=== PATIENT | female | born 1960 | race Caucasian/White ===

== ENCOUNTER 2017-04-18 09:59 | Inpatient (IN) | payer BC, OTHER ==
[2017-04-08 10:04] VITALS: BMI 36.0
--- NOTE | 2017-04-08 10:42 | PAT Medication Instructions ---
Service Date Apr 08, 2017. Current Home Medication List Fenofibrate (Fenofibrate), 1 TAB PO QAM Fish Oil ([place]-3), 1 CAP PO QAM Fluticasone Prop/Salmeterol (Advair Diskus 250/50 60 Dose), 1 PUFF INH QAM Montelukast Sodium (Singulair), 10 MG PO QAM Olmesartan Medoxomil (Benicar), 40 MG PO QAM Oxygen (Oxygen), 2 LITERS NA PRN PRN for Shortness of Breath Pantoprazole (Protonix), 40 MG PO QAM Tiotropium Spencer (Spiriva Handihaler), 1 CAP INH QAM Medication Instructions For Your Scheduled Surgery - Hold the following medications as of 04/09/17: Fish Oil ([place]-3), 1 CAP PO QAM - Hold the following medications the morning of surgery: Olmesartan Medoxomil (Benicar), 40 MG PO QAM Fenofibrate (Fenofibrate), 1 TAB PO QAM - Take the following medications the morning of surgery with a sip of water OTHERWISE NOTHING TO EAT OR DRINK AFTER MIDNIGHT: Pantoprazole (Protonix), 40 MG PO QAM Tiotropium Spencer (Spiriva Handihaler), 1 CAP INH QAM Fluticasone Prop/Salmeterol (Advair Diskus 250/50 60 Dose), 1 PUFF INH QAM Montelukast Sodium (Singulair), 10 MG PO QAM If you have any questions please call us at [phone] or [phone] or [phone]
[2017-04-08 11:41] LABS: BASO % 0.1 %; BASO ABS # 0.01 K/uL (0-0.2); COMPLETE YES; EOS % 2.3 %; HEMATOCRIT 46.4 % (37-47); IG% 0.4 %; LYMPH % 19.6 %; LYMPH ABS # 1.45 K/uL (1.2-3.4); MEAN CELL VOLUME 92.2 fL (80-100); MEAN CORPUSCULAR HEMOGLOBIN 30.6 pg (25-34); MEAN CORPUSCULAR HGB CONC 33.2 g/dl (32-36); MEAN PLATELET VOLUME 10.9 fL (7.4-10.4); MONO % 8.1 %; NEUT % 69.5 %; PLATELET COUNT 270 K/uL (130-400); RED BLOOD COUNT 5.03 M/uL (4.2-5.4); WHITE BLOOD COUNT 7.41 K/uL (4.8-10.8)
[2017-04-08 11:50] LABS: BUN/CREATININE RATIO 11.1 (10-20); CALCIUM 9.5 mg/dl (8.5-10.1); CREATININE 0.87 mg/dl (0.60-1.20); POTASSIUM 4.1 mmol/L (3.5-5.1)
[~2017-04-18] VITALS: Ht 157.5 cm; Wt 89.1 kg
[2017-04-18] VITALS (7 sets, daily range): BP systolic 130–160; BP diastolic 74–91; PULSE 78–92; TEMP 36.5–37; O2SAT 90–98; Ht 157.5 cm; Wt 89.1 kg
[~2017-04-18 09:59] MED LIST: ADVIN25/60 INH; BNC/40 PO; LACTATED RINGER'S 1000ML IV SCH; MONT1TAB3 PO; OMEG10007 PO; OXGN; PANT40TA PO; SCOPOLAMINE 1.5 MG TDSY TD SCH; SPRIN/30 INH; TRC145 PO
[2017-04-18] MEDS ORDERED: ASPI-232 PO (10:39)
[2017-04-18] MEDS ORDERED: DEXAMETHASONE SOD INJ 4 MG/ML VIAL ONE (10:54)
[2017-04-18] MEDS ORDERED: SUCCINYLCHOLINE CHLORIDE 20 MG/ML 10 ML VIAL IV ONE (10:54)
[2017-04-18] MEDS ORDERED: ROCURONIUM BROMIDE 10 MG/ML 5 ML VIAL ONE (10:54)
[2017-04-18] MEDS ORDERED: NEOSTIGMINE METHYLSULFATE 5 MG/5 ML SYR ONE (10:54)
[2017-04-18] MEDS ORDERED: ONDANSETRON INJ 2 MG/ML 2 ML VIAL ONE ×3 (10:54→12:54)
[2017-04-18] MEDS ORDERED: PROPOFOL IV EMULSION 10 MG/ML 20 ML VIAL IV ONE (10:54)
[2017-04-18] MEDS ORDERED: GLYCOPYRROLATE INJ 0.2 MG/ML VIAL ONE ×2 (10:54→13:59)
[2017-04-18] MEDS ORDERED: PHENYLEPHRINE HCL INJ 10 MG/ML VIAL ONE (10:54)
[2017-04-18] MEDS ORDERED: EpHEDrine SULFATE INJ 50 MG/ML AMP ONE (10:54)
[2017-04-18] MEDS ORDERED: LIDOCAINE HCL 2% 2 ML VIAL (20MG/ML) ONE (10:54)
[2017-04-18] MEDS ORDERED: MIDAZOLAM HCL 1 MG/ML 2ML VIAL ONE (10:55)
[2017-04-18] MEDS ORDERED: FENTANYL CITRATE INJ 50 MCG/1 ML 2 ML VIAL ONE ×3 (10:55→14:24)
[2017-04-18] MEDS ORDERED: LACTATED RINGER'S 1000ML 1,000 ML IV PRN (11:34)
[2017-04-18] MEDS ORDERED: SCOPOLAMINE 1.5 MG TDSY TD ONE (11:36)
[2017-04-18] MEDS ORDERED: ONDANSETRON INJ 2 MG/ML 2 ML VIAL IV PRN ×2 (11:45→14:30)
[2017-04-18] MEDS ORDERED: FENTANYL CITRATE INJ 50 MCG/1 ML 2 ML VIAL IV PRN (11:45)
[2017-04-18] MEDS ORDERED: HYDROmorphone INJ 1 MG/ML SYR IV PRN (11:45)
[2017-04-18] MEDS ORDERED: DiphenhydrAMINE HCL 50 MG/ML VIAL IV PRN (11:45)
[2017-04-18] MEDS ORDERED: METOCLOPRAMIDE HCL INJ 5 MG/ML 2 ML VIAL ONE (12:14)
[2017-04-18] MEDS ORDERED: DiphenhydrAMINE HCL 50 MG/ML VIAL ONE (12:15)
[2017-04-18] MEDS ORDERED: BUPIVACAINE LIPOSOME 1/3% 266 MG/20 ML VIAL INFIL ONE (12:17)
[2017-04-18] MEDS ORDERED: SODIUM CHLORIDE 0.9% PF 50 ML VIAL ONE (12:17)
--- NOTE | 2017-04-18 12:27 | History & Physical Bridge Note ---
H&P Re-Evaluation Bridge Note: I have examined the patient, reviewed the History & Physical and in the interval since the performance of the History & Physical I have noted the following changes of clinical significance: No changes noted
[2017-04-18] MEDS ORDERED: ARTIFICIAL TEARS OP OINT 3.5 GM TUBE ONE (12:50)
[2017-04-18] MEDS ORDERED: ESMOLOL HCL 10 MG/ML 10 ML VIAL ONE (12:54)
[2017-04-18] MEDS ORDERED: KETAMINE HCL INJ 50 MG/ML 10 ML VIAL ONE (12:59)
[2017-04-18] MEDS ORDERED: CEFAZOLIN SOD 1 GM VIAL ONE (13:22)
[2017-04-18] MEDS ORDERED: MoRPHine SULFATE 2 MG/ML CARP IV PRN (14:30)
[2017-04-18] MEDS ORDERED: OXYCODONE HCL IR 5 MG TAB (IMMEDIATE RELEASE) PO PRN (14:30)
--- NOTE | 2017-04-18 15:09 | DIAGNOSTIC IMAGING REPORT ---
SINGLE VIEW CHEST CLINICAL HISTORY: Status post lung biopsies. FINDINGS: An AP, portable, upright chest radiograph is compared to study dated 03/09/2016 and correlated with chest CT dated 08/30/2016. The cardiomediastinal silhouette is unremarkable. A hiatal hernia is noted. Chronic interstitial thickening is similar to previous. A right-sided chest tube has been placed. Airspace opacities in the right midlung are new from previous and may represent postbiopsy hemorrhage. No large pleural effusion is identified. No pneumothorax is seen. The skeletal structures are osteopenic. The bony thorax is grossly intact. IMPRESSION: 1. A right-sided chest tube has been placed. No pneumothorax is seen post procedure. 2. Airspace opacities in the right midlung are new from previous and likely represent postprocedural hemorrhage. Follow-up to resolution is recommended. 3. Chronic interstitial thickening is unchanged. Parenchymal findings were better assessed on the 08/30/2016 CT scan. Electronically signed by: Lane Nguyen M.D. 04/18/2017 3:08 PM Dictated Date/Time: 04/18/2017 3:05 PM
[2017-04-18] MEDS ORDERED: KETOROLAC TROMETHAMINE 30 MG/ML VIAL ONE (15:13)
[2017-04-18] MEDS ORDERED: KETOROLAC TROMETHAMINE 30 MG/ML VIAL IV STA (15:14)
--- NOTE | 2017-04-18 15:19 | Anesthesiology Progress Note ---
Anesthesia Post Op Note Date & Time Apr 18, 2017 at 15:15 Vital Signs Pain Intensity: 5 Vital Signs Past 12 Hours Date Time Temp Pulse Resp B/P (MAP) Pulse Ox O2 Delivery O2 Flow Rate FiO2 04/18/17 15:01 158/79 04/18/17 14:59 93 20 95 04/18/17 14:59 92 20 04/18/17 14:56 151/82 04/18/17 14:54 88 18 97 04/18/17 14:54 87 18 04/18/17 14:51 132/70 04/18/17 14:49 97 20 04/18/17 14:49 95 20 99 04/18/17 14:46 149/82 04/18/17 14:44 100 24 04/18/17 14:44 101 24 97 04/18/17 14:43 165/75 04/18/17 14:41 154/97 04/18/17 14:39 106 79 04/18/17 14:39 106 04/18/17 14:39 36.4 99 18 154/97 92 Mask 15 04/18/17 10:27 36.5 92 20 160/91 91 Room Air Notes Mental Status: alert / awake / arousable, participated in evaluation Pt Amnestic to Procedure: Yes Nausea / Vomiting: adequately controlled Pain: adequately controlled Airway Patency, RR, SpO2: stable & adequate BP & HR: stable & adequate Hydration State: stable & adequate Anesthetic Complications: no major complications apparent Pain continues to improve. Giving a dose of ketorolac for pain around chest tube. O2 coming down, currently at 5L, satting mid 90s. Of note, pt's sat was just 91% on room air to start.
[2017-04-18] MEDS: KETOROLAC TROMETHAMINE 15 MG/ML VIAL IV. SCH ×2 (16:00→23:49)
[2017-04-18] MEDS: CHECK SCOPOLAMINE PATCH PLACEMENT SCH ×2 (16:00→23:50)
--- NOTE | 2017-04-18 17:30 | OPERATIVE REPORT ---
DATE OF OPERATION: 04/18/2017 PREOPERATIVE DIAGNOSIS: Cystic fibrotic changes bilateral lungs. POSTOPERATIVE DIAGNOSIS: Same. PROCEDURE: Robotic-assisted thoracoscopic lung biopsy right lung. SURGEON: Dr. Escobar. GOLF RANGE ATTENDANT: MELISSA Carpenter ANESTHESIA: General anesthesia endotracheal intubation with a single lumen tube. SPECIFICS OF PROCEDURE: Mrs. Wong is a 57-year-old who was followed by the condenser cleaner and they have been concerned about her lungs for quite some time. She has marked dyspnea. She had cystic changes on her CT scan. Tissue diagnosis was required. Discussed this in detail. 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 On 04/18/2017, the patient underwent an uncomplicated robotic-assisted thoracoscopic biopsy. We biopsied the right upper lobe, right middle lobe and right lower lobe. We did an Exparel block. We had negligible blood loss. She tolerated it well. DESCRIPTION OF PROCEDURE: The patient brought to the operating room and laid in supine position. General anesthesia induced and endotracheal intubation was performed with a single lumen tube. The patient was then prepped and draped in the usual sterile fashion in the left lateral decubitus position. After appropriate timeout had been given and prophylactic antibiotics administered, an incision was made in the midaxillary line in about the ninth interspace. A 12 mm port was placed and upon placing the 0 degrees camera, could be seen there were no adhesions. There were obvious gross changes of the lungs. It appeared to have a predilection for the upper lobe and the middle lobe. Another port was placed posteriorly about a handsbreadth away in ninth interspace and another port placed in the eighth interspace anteriorly. I then placed an chemist assistant's port between the midaxillary line and the anterior port 2 interspaces below. These were all done under thoracoscopic guidance. Robot was then docked. Upon entering a portion of the right upper lobe was grasped and an EndoGIA stapler was fired 3 times to remove a portion of the right upper lobe. This was removed through the chemist assistant port and a portion cut and sent for cultures. I then removed a small portion of the middle lobe and then a portion of the lower lobe which did not appear to have the same changes. We irrigated this out and there really was very little in the way of any bleeding and there was no air leak. 266 mg of Exparel mixed with 60 mL of normal saline and used to block the 2nd to the 11th rib intrathoracically. This was done through the chemist assistant's port. We then undocked the robot after placing a chest tube to the anterior thoracoscopy port. A 24-[place] chest tube was directed towards the apex, sutured in place with heavy silk suture. We had no air leak at the conclusion of the case. 0 Vicryl was used to close the muscle layers of each of the remaining 3 ports and then 4-0 Monocryl was used in running fashion to reapproximate the wound edges. She tolerated it quite well. I attest to the content of the Intraoperative Record and any orders documented therein. Any exception s are noted below.
[2017-04-18] MEDS: D5W AND 1/2NSS 1,000 ML IV SCH (17:33)
[2017-04-18] MEDS: ACETAMINOPHEN IV 1,000 MG in EMPTY BAG 0 ML IV SCH ×2 (17:33→23:49)
[2017-04-18] MEDS: CEFAZOLIN IV 2,000 MG in DEXTROSE 5% 50ML 100 ML IV SCH (20:27)
[2017-04-18] MEDS: DOCUSATE SODIUM 100 MG CAP PO SCH (20:37)
[2017-04-18] MEDS: METOCLOPRAMIDE HCL INJ 5 MG/ML 2 ML VIAL IV. SCH (23:09)
[2017-04-19] MEDS: D5W AND 1/2NSS 1,000 ML IV SCH (02:37)
[2017-04-19] MEDS: CEFAZOLIN IV 2,000 MG in DEXTROSE 5% 50ML 100 ML IV SCH (03:51)
[2017-04-19 04:00] VITALS: BP 110/65; PULSE 61; TEMP 36.7; O2SAT 95
[2017-04-19] MEDS: METOCLOPRAMIDE HCL INJ 5 MG/ML 2 ML VIAL IV. SCH (05:54)
[2017-04-19 05:58] VITALS: O2SAT 93
[2017-04-19 06:11] LABS: INR 1.1 (0.9-1.1)
[2017-04-19] MEDS: KETOROLAC TROMETHAMINE 15 MG/ML VIAL IV. SCH (07:26)
[2017-04-19] MEDS: CHECK SCOPOLAMINE PATCH PLACEMENT SCH (07:27)
[2017-04-19] MEDS: ACETAMINOPHEN IV 1,000 MG in EMPTY BAG 0 ML IV SCH (07:27)
--- NOTE | 2017-04-19 08:17 | DIAGNOSTIC IMAGING REPORT ---
CHEST ONE VIEW PORTABLE CLINICAL HISTORY: s/p lung biopsies post biopsy COMPARISON STUDY: 04/18/2017 FINDINGS: No evidence for postprocedural pneumothorax. Chronic interstitial change throughout both hemithoraces is seen. Right-sided chest tube is unchanged in location. IMPRESSION: Stable post procedural chest series. No evidence pneumothorax. Electronically signed by: Jose Graham M.D. 04/19/2017 8:15 AM Dictated Date/Time: 04/19/2017 8:15 AM
[2017-04-19 08:18] VITALS: BP 128/76; PULSE 70; TEMP 36.7; O2SAT 92
[2017-04-19] MEDS ORDERED: ENOXAPARIN 40 MG/0.4 ML SYR SQ SCH (09:00)
[2017-04-19] MEDS ORDERED: PANTOprazole SOD 40 MG TAB PO SCH (09:00)
[2017-04-19] MEDS ORDERED: OLMESARTAN MEDOXOMIL 40 MG TAB PO SCH (09:00)
[2017-04-19] MEDS ORDERED: TIOTROPIUM BROMIDE 5 PUFF/90 MCG INH INH SCH (09:00)
[2017-04-19] MEDS ORDERED: ASPIRIN 81 MG ECTAB PO SCH (09:00)
[2017-04-19] MEDS ORDERED: FENOFIBRATE 145 MG TAB PO SCH (09:00)
[2017-04-19] MEDS ORDERED: FLUTICASONE/SALMETEROL 250/50 (ADVAIR) 14 PUFF/1 INHALER INH SCH (09:00)
[2017-04-19] MEDS ORDERED: MONTELUKAST SOD 10 MG TAB PO SCH (09:00)
[2017-04-19] MEDS ORDERED: RXC5 PO (09:06)
--- NOTE | 2017-04-19 09:12 | Discharge Instructions ---
Discharge Instructions Date of Service Apr 19, 2017. Admission Reason for Admission: Interstitial Lung Disease Discharge Discharge Diagnosis / Problem: Interstitial lung disease Discharge Goals Goal(s): Decrease discomfort (Use pain meds as needed.) Activity Recommendations Activity Limitations: as noted below Exercise/Sports Limitations: gradually increase as tolerated May Resume Sexual Activity: when tolerated Shower/Bathe: may shower/bathe in 3 days . Instructions / Follow-Up Instructions / Follow-Up My office will call you about appointment next week. You will need to get a Chest X-ray before I see you next week. My office will instruct you about this. Remove all dressings and shower on 04-22-17. Use you incentive spirometer. Walk!!! Current Hospital Diet Patient's current hospital diet: Regular Diet Discharge Diet Recommended Diet: Regular Diet Fluid Restriction: None Procedures Procedures Performed: Right Video Assisted Thoracoscopy with Lung Biopsies Robot Assist Pending Studies Studies pending at discharge: yes List of pending studies: Pathology Medical Emergencies . Who to Call and When: Medical Emergencies: If at any time you feel your situation is an emergency, please call 911 immediately. . Non-Emergent Contact Non-Emergency issues call your: Surgeon (Call hospital at [phone] Escobar.) . "Provider Documentation" section prepared by Cole Escobar. . VTE Core Measure Inpt VTE Proph given/why not?: Enoxaparin (Lovenox)SQ, SCD's
--- NOTE | 2017-04-19 09:22 | DIAGNOSTIC IMAGING REPORT ---
CHEST ONE VIEW PORTABLE CLINICAL HISTORY: s/p chest tube removal COMPARISON STUDY: 04/19/2017 8:05 AM FINDINGS: No evidence pneumothorax status post right-sided chest tube removal. All remaining components of the study are unchanged. IMPRESSION: No pneumothorax status post chest tube removal. Electronically signed by: Jose Graham M.D. 04/19/2017 9:21 AM Dictated Date/Time: 04/19/2017 9:20 AM
[2017-04-19] MEDS: DOCUSATE SODIUM 100 MG CAP PO SCH (09:28)
[2017-04-19 10:24] VITALS: BP 128/76; PULSE 70; TEMP 36.7; O2SAT 92
--- NOTE | 2017-04-21 09:03 | DISCHARGE SUMMARY ---
DISCHARGE DIAGNOSES: 1. Cystic/fibrotic disease of lungs. HOSPITAL COURSE: This very nice 57-year-old has known history of problems with cystic changes in her lungs. She was sent to me by Dr. Magdi Amor as a tissue diagnosis is required. She suffers from significant dyspnea. On 04/18/2017, the patient underwent an uncomplicated robot-assisted thoracoscopic biopsy of her right lower, middle and upper lobes. It appeared there was predilection to the upper lobes grossly. The patient tolerated this very well with no significant blood loss. She had no air leak. I discharged her the following morning on 04/19/2017. She was ambulating in the hallway after I pulled her chest tube and was on room air. She had no pneumothorax on her chest x-ray or effusion or infiltrate. Her pain was very well-controlled. She was discharged home with wound care instructions. I will see her back in the office next week to go over her path results.
== END 2017-04-19 10:55 | disposition home or self-care (01) | DRG 168 ==
LOC: C.ACU 09:59 → C.MSN 14:32 → ENRESERV 15:21
PROVIDERS: ADMIT Surgery; ATTEND Surgery
PROC: 0BBF4ZX Excision of Right Lower Lung Lobe, Percutaneous Endoscopic Approach, Diagnostic (ICD-10-PCS; principal; 2017-04-18 12:00)
PROC: 8E0W4CZ Robotic Assisted Procedure of Trunk Region, Percutaneous Endoscopic Approach (ICD-10-PCS; principal; 2017-04-18 12:00)
PROC: 0BBD4ZX Excision of Right Middle Lung Lobe, Percutaneous Endoscopic Approach, Diagnostic (ICD-10-PCS; principal; 2017-04-18 12:00)
PROC: 0BBC4ZX Excision of Right Upper Lung Lobe, Percutaneous Endoscopic Approach, Diagnostic (ICD-10-PCS; principal; 2017-04-18 12:00)
DX: J84.10 Pulmonary fibrosis, unspecified (principal); J43.9 Emphysema, unspecified; J45.909 Unspecified asthma, uncomplicated; I10 Essential (primary) hypertension; K21.9 Gastro-esophageal reflux disease without esophagitis; G47.30 Sleep apnea, unspecified; E66.9 Obesity, unspecified; Z68.36 Body mass index [BMI] 36.0-36.9, adult; Z99.81 Dependence on supplemental oxygen; Z96.652 Presence of left artificial knee joint; Z87.891 Personal history of nicotine dependence; Z79.82 Long term (current) use of aspirin; Z79.899 Other long term (current) drug therapy

== ENCOUNTER → 2017-04-26 | Outpatient (CLI) | payer BC ==
[~2017-04-26] MED LIST changes: +ASPI-232 PO; -LACTATED RINGER'S 1000ML IV SCH; +RXC5 PO; -SCOPOLAMINE 1.5 MG TDSY TD SCH
--- NOTE | 2017-04-26 09:22 | DIAGNOSTIC IMAGING REPORT ---
CHEST 2 VIEWS ROUTINE HISTORY: J43.9 Pulmonary [id number] Lung disease, [id number] COMPARISON: Chest 04/19/2017. FINDINGS: The heart is borderline enlarged. This remains unchanged. Mild diffuse interstitial thickening persists. No pleural effusions. No pneumothorax. Right midlung zone peripheral focal airspace opacity has slightly improved. IMPRESSION: 1. Right midlung zone peripheral focal airspace opacity is slightly improved. 2. Diffuse interstitial thickening, unchanged. Electronically signed by: Nathan Elaine M.D. 04/26/2017 9:21 AM Dictated Date/Time: 04/26/2017 9:19 AM
== END | disposition home or self-care (01) ==
LOC: C.RAD 08:57
PROVIDERS: ATTEND Surgery
DX: J43.9 Emphysema, unspecified (principal); J84.9 Interstitial pulmonary disease, unspecified; R91.8 Other nonspecific abnormal finding of lung field

== ENCOUNTER → 2017-07-07 | Outpatient (CLI) | payer BC ==
[~2017-07-07] MED LIST changes: +OPTIRAY 320 IV PRN
--- NOTE | 2017-07-07 15:53 | DIAGNOSTIC IMAGING REPORT ---
CT SCAN OF THE ABDOMEN AND PELVIS COMBO CLINICAL HISTORY: Lymphangioleiomyomatosis. Assess for angiomyolipoma of the kidneys. COMPARISON STUDY: Chest CT dated 08/30/2016. TECHNIQUE: Before and following the IV administration of 93 cc of Optiray 320, CT scan of the abdomen and pelvis is performed from the lung bases to the proximal femora. Images are reviewed in the axial, sagittal, and coronal planes. IV contrast was administered without complication. A dose lowering technique was utilized adhering to the principles of ALARA. CT DOSE: 1927.54 mGycm FINDINGS: Lung bases: The heart is normal in size and without pericardial effusion. Numerous cysts are present at both lung bases. No airspace consolidation or pleural effusion is identified. There is a moderate to large hiatal hernia. Liver: The contrast-enhanced liver is enlarged, measuring 21 cm in length. The liver demonstrates diffusely diminished attenuation consistent with hepatic steatosis. Fatty sparing is seen adjacent to the gallbladder fossa. There is no intrahepatic biliary ductal dilatation. The hepatic veins and portal veins are patent. Gallbladder: Unremarkable. Spleen: The spleen is mildly enlarged measuring 14 cm in length. Pancreas: Unremarkable. Adrenal glands: Unremarkable. Kidneys: No renal calculi are identified on the unenhanced series. The contrast enhanced kidneys demonstrate mild cortical atrophy and are without hydronephrosis. The kidneys enhance symmetrically. No renal mass lesion is seen. A 12 mm cyst is present in the left lower pole. Abdominal vasculature: The abdominal aorta is normal in course and caliber noting mild atherosclerotic calcification. Bowel: The small bowel and colon are normal in course and caliber. There is mild to moderate colonic fecal retention. The appendix is well-visualized and normal. Peritoneum: There is no intraperitoneal free air or abdominal ascites. Lymphadenopathy: None. Pelvic viscera: The bladder, uterus, and adnexa are normal as visualized. Skeletal structures: The skeletal structures are osteopenic. Mild degenerative change is present at L5-S1. No lytic or blastic lesions are seen. IMPRESSION: 1. There is no renal mass lesion identified. Specifically, there is no evidence of angiomyolipoma as clinically queried. 2. 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 3. Hepatomegaly and hepatic steatosis. 4. Mild splenomegaly. 5. Hiatal hernia. 6. Additional findings as above. Electronically signed by: Lane Nguyen M.D. 07/07/2017 3:51 PM Dictated Date/Time: 07/07/2017 3:42 PM
--- NOTE | 2017-07-13 09:01 | ECHOCARDIOGRAM REPORT ---
*NOTICE TO RECEIVING [employer] This information is strictly Confidential and protected under [place] law. [place] law prohibits you from making any further disclosure of this information unless further disclosure is expressly permitted by the written consent of the person to whom it pertains or is authorized by law. A general authorization for the release of medical or other information is not sufficient for this purpose. Hospital accepts no responsibility if the information is made available to any other person, INCLUDING THE PATIENT. Interpretation Summary * Echocardiogram Report * Name: VALDEZ MCCURDY Study Date: 07/07/2017 01:14 PM * HR: 79 * : 1960 (M/d/yyyy) Gender: Female Height: 62 in * Age: 57 yrs Ethnicity: [place] Weight: 196 lb * Ordering Physician: Refugio Carter M.D. * Referring Physician: Refugio Carter M.D. * Performed By: Radha Berg RCS * Reason For Study: Lymphagioleimyomatosis; Eval Heart to Start Medication * BSA: 1.9 m2 * -- Conclusions -- * 1. Normal left ventricular size and systolic function. EF 60-65%. No regional wall motion abnormalities. No left ventricular hypertrophy. Type 1 diastolic dysfunction. * 2. Aortic valve sclerosis mild, without significant aortic valvular stenosis. Trace aortic regurgitation. * 3. Normal estimated right ventricular systolic pressure. * 4. No prior study available for comparison. Procedure Details * Left Ventricle Normal left ventricular size and systolic function. EF 60-65%. No regional wall motion abnormalities. No left ventricular hypertrophy. Type 1 diastolic dysfunction. * Right Ventricle The right ventricle is normal in size and function. The right ventricular systolic function is normal as assessed by tricuspid annular plane systolic excursion (TAPSE) (normal >1.5 cm). * Atria The left atrial size is normal. Right atrial size is normal. There is no evidence of atrial septal defect, but resolution does not allow assessment for a patent foramen ovale. * Mitral Valve There is mild mitral annular calcification. There is no mitral valve stenosis. There is trace mitral regurgitation. * Tricuspid Valve The tricuspid valve is not well visualized, but is grossly normal. There is no tricuspid stenosis. There is trace tricuspid regurgitation. * Aortic Valve The aortic valve is trileaflet. Aortic valve sclerosis mild, without significant aortic valvular stenosis. Trace aortic regurgitation. * Pulmonic Valve The pulmonary valve is inadequately visualized, but the Doppler data is adequate for interpretation. There is no pulmonic valvular stenosis. There is no significant pulmonary regurgitation. * Great Vessels The aortic root is normal size. * Pericardium/Pleural There is no pericardial effusion. * Great Vessels Normal inferior vena cava size and collapsability with sniff indicates a normal right atrial pressure of 3 mmHg * * MMode 2D Measurements and Calculations * IVSd 0.86 cm * * LVIDd 4.9 cm * LVIDs 2.6 cm * LVPWd 0.88 cm * * IVS/LVPW 0.97 * FS 46.9 % * EDV(Teich) 115.4 ml * ESV(Teich) 25.3 ml * EF(Teich) 78.1 % * * EDV(cubed) 121.1 ml * ESV(cubed) 18.2 ml * EF(cubed) 85.0 % * * LV mass(C)d 148.8 grams * LV mass(C)dI 78.5 grams/m\S\2 * * SV(Teich) 90.1 ml * SI(Teich) 47.6 ml/m\S\2 * SV(cubed) 103.0 ml * SI(cubed) 54.3 ml/m\S\2 * * Ao root diam 2.7 cm * Ao root area 5.9 cm\S\2 * * LVOT diam 2.0 cm * LVOT area 3.2 cm\S\2 * * LVAd ap4 27.0 cm\S\2 * LVLd ap4 8.2 cm * EDV(MOD-sp4) 73.8 ml * EDV(sp4-el) 75.2 ml * LVAs ap4 14.9 cm\S\2 * LVLs ap4 6.5 cm * ESV(MOD-sp4) 30.3 ml * ESV(sp4-el) 28.7 ml * EF(MOD-sp4) 58.9 % * EF(sp4-el) 61.8 % * * LVAd ap2 26.6 cm\S\2 * LVLd ap2 8.1 cm * EDV(MOD-sp2) 77.3 ml * EDV(sp2-el) 74.2 ml * LVAs ap2 14.0 cm\S\2 * LVLs ap2 6.4 cm * ESV(MOD-sp2) 26.9 ml * ESV(sp2-el) 25.9 ml * EF(MOD-sp2) 65.2 % * EF(sp2-el) 65.0 % * * LVLd %diff -1.20 % * EDV(MOD-bp) 76.6 ml * LVLs %diff -1.76 % * ESV(MOD-bp) 28.6 ml * EF(MOD-bp) 62.7 % * * SV(MOD-sp4) 43.4 ml * SI(MOD-sp4) 22.9 ml/m\S\2 * * SV(MOD-sp2) 50.4 ml * SI(MOD-sp2) 26.6 ml/m\S\2 * * SV(MOD-bp) 48.0 ml * SI(MOD-bp) 25.3 ml/m\S\2 * * SV(sp4-el) 46.5 ml * SI(sp4-el) 24.5 ml/m\S\2 * * SV(sp2-el) 48.2 ml * SI(sp2-el) 25.5 ml/m\S\2 * * * Doppler Measurements and Calculations * MV E max adore 75.5 cm/sec * MV A max adore 100.8 cm/sec * * MV E/A 0.75 * * MV dec time 0.23 sec * * Ao V2 max 214.8 cm/sec * Ao max PG 18.5 mmHg * Ao max PG (full) 12.9 mmHg * Ao V2 mean 138.6 cm/sec * Ao mean PG 8.7 mmHg * Ao mean PG (full) 5.7 mmHg * Ao V2 VTI 40.9 cm * TERRY(I,A) 1.9 cm\S\2 * TERRY(I,D) 1.9 cm\S\2 * TERRY(V,A) 1.7 cm\S\2 * TERRY(V,D) 1.7 cm\S\2 * * LV V1 max PG 5.6 mmHg * LV V1 mean PG 3.0 mmHg * * LV V1 max 117.9 cm/sec * LV V1 mean 81.1 cm/sec * LV V1 VTI 25.1 cm * * SV(Ao) 242.2 ml * SI(Ao) 127.8 ml/m\S\2 * SV(LVOT) 79.5 ml * SI(LVOT) 42.0 ml/m\S\2 * * TR max adore 224.8 cm/sec * RVSP(TR) 23.2 mmHg * * RAP systole 3.0 mmHg * * * * *
== END | disposition home or self-care (01) ==
LOC: C.CPL 12:52
PROVIDERS: ATTEND Internal Medicine Pulmonary Disease
DX: J84.81 Lymphangioleiomyomatosis (principal)

== ENCOUNTER → 2017-08-03 | Outpatient (CLI) | payer BC ==
[~2017-08-03] MED LIST changes: -OPTIRAY 320 IV PRN
== END | disposition home or self-care (01) ==
LOC: C.PAPS 13:51
PROVIDERS: ATTEND Obstetrics & Gynecology
DX: Z01.419 Encounter for gynecological examination (general) (routine) without abnormal findings (principal)

== ENCOUNTER → 2017-08-03 | Outpatient (CLI) | payer BC ==
--- NOTE | 2017-08-04 13:54 | MAMMOGRAPHY REPORT ---
BILATERAL DIGITAL SCREENING MAMMOGRAM TOMOSYNTHESIS WITH CAD: 08/03/2017 CLINICAL HISTORY: Routine screening. Patient has no complaints. TECHNIQUE: Breast tomosynthesis in addition to standard 2D mammography was performed. Current study was also evaluated with a Computer Aided Detection (CAD) system. COMPARISON: Comparison is made to exams dated: 07/29/2016 mammogram, 07/28/2015 mammogram, 07/26/2014 m ammogram, 07/18/2013 mammogram, 07/17/2012 mammogram, and 06/25/2011 mammogram - [facility] enter. BREAST COMPOSITION: There are scattered areas of fibroglandular density in both breasts. FINDINGS: There are a few benign calcifications scattered bilaterally. Stable asymmetry in the 12:00 right breast. No new suspicious mass, architectural distortion or cluster of microcalcifications is seen. IMPRESSION: ACR BI-RADS CATEGORY 1: NEGATIVE There is no mammographic evidence of malignancy. A 1 year screening mammogram is recommended. The pa tient will receive written notification of the results. Approximately 10% of breast cancers are not detected with mammography. A negative mammographic report should not delay biopsy if a clinically suggestive mass is present. Doris Fong M.D. ay/:08/03/2017 13:12:45 Dietary Service Aide: Bhumika ARIAS(Anthony)(M), [facility] letter sent: Normal 1/2 BI-RADS Code: ACR BI-RADS Category 1: Negative
== END | disposition home or self-care (01) ==
LOC: C.MAMM 10:33
PROVIDERS: ATTEND Obstetrics & Gynecology
DX: Z12.31 Encounter for screening mammogram for malignant neoplasm of breast (principal)

== ENCOUNTER → 2017-11-22 | Outpatient (CLI) | payer BC ==
[2017-11-22 18:15] LABS: BASO % 0.1 %; BASO ABS # 0.01 K/uL (0-0.2); EOS % 1.6 %; EOS ABS # 0.13 K/uL (0-0.5); HEMOGLOBIN 13.5 g/dL (12.0-16.0); IG# 0.04 K/uL (0.00-0.02); LYMPH % 24.2 %; LYMPH ABS # 1.98 K/uL (1.2-3.4); MEAN CELL VOLUME 88.5 fL (80-100); MEAN CORPUSCULAR HEMOGLOBIN 29.9 pg (25-34); MEAN CORPUSCULAR HGB CONC 33.8 g/dl (32-36); MEAN PLATELET VOLUME 10.6 fL (7.4-10.4); MONO % 9.2 %; MONO ABS # 0.75 K/uL (0.11-0.59); NEUT % 64.4 %; NEUT ABS # 5.26 K/uL (1.4-6.5); PLATELET COUNT 302 K/uL (130-400); RED CELL DISTRIBUTION WIDTH CV 14.7 % (11.5-14.5); RED CELL DISTRIBUTION WIDTH SD 47.1 fL (36.4-46.3); WHITE BLOOD COUNT 8.17 K/uL (4.8-10.8)
[2017-11-22 18:53] LABS: ALBUMIN 3.9 gm/dl (3.4-5.0); BLOOD UREA NITROGEN 8 mg/dl (7-18); CALCIUM 9.9 mg/dl (8.5-10.1); CARBON DIOXIDE 28 mmol/L (21-32); CREATININE 0.71 mg/dl (0.60-1.20); GLUCOSE 91 mg/dl (70-99); POTASSIUM 4.2 mmol/L (3.5-5.1); SODIUM 138 mmol/L (136-145)
[2017-11-22 18:57] LABS: ALKALINE PHOSPHATASE 81 U/L (45-117); ALT/SGPT 36 U/L (12-78); AST/SGOT 33 U/L (15-37); TOTAL PROTEIN 7.9 gm/dl (6.4-8.2)
== END | disposition home or self-care (01) ==
LOC: C.LAB 16:29
PROVIDERS: ATTEND Internal Medicine Pulmonary Disease
DX: J45.909 Unspecified asthma, uncomplicated (principal); J84.9 Interstitial pulmonary disease, unspecified; J84.81 Lymphangioleiomyomatosis